=== PATIENT | male | born 1990 | race Hispanic/Latino ===

== ENCOUNTER 2020-03-17 13:48 | Emergency (ER) | payer OTHER ==
[2020-03-17] MEDS ORDERED: LIDOCAINE HCL 2% VISCOUS 15 ML UDCUP ONE ×2 (16:57→16:59)
[2020-03-17] MEDS ORDERED: MAG HYDROX/AL HYDROX/SIMETH ES 30 ML SUSP UDCUP ONE ×2 (16:57→16:59)
== END 2020-03-17 17:03 | disposition home or self-care (01) ==
LOC: EDH 13:48
DX: T17.208A Unspecified foreign body in pharynx causing other injury, initial encounter (principal); R13.10 Dysphagia, unspecified; X58.XXXA Exposure to other specified factors, initial encounter; Y93.89 Activity, other specified; Y92.89 Other specified places as the place of occurrence of the external cause; Y99.8 Other external cause status
CPT/HCPCS: 70360; 70490

== ENCOUNTER 2020-09-21 12:46 | Emergency (ER) | payer OTHER ==
[2020-09-21 14:00] LABS: RAPID GROUP A STREP NEGATIVE (NEGATIVE)
[2020-09-21 14:02] LABS: CREATININE 1.2 mg/dL (0.5-1.5); POTASSIUM 3.7 mmol/L (3.5-5.1)
[2020-09-21 14:06] LABS: ALBUMIN 4.2 g/dL (3.5-5.0); BILIRUBIN,TOTAL 0.5 mg/dL (0.2-1.0); TOTAL PROTEIN, SERUM 8.1 g/dL (6.0-8.3)
[2020-09-21 14:08] LABS: BASOPHILS % (AUTO) 0.6 % (0.0-5.0); EOSINOPHILS % (AUTO) 0.7 % (0.0-8.0); HEMATOCRIT 40.7 % (42-54); LYMPHOCYTES % (AUTO) 5.2 % (21.0-51.0); MEAN CORPUSCULAR HEMOGLOBIN 24.5 pg (27.0-33.0); MEAN CORPUSCULAR HGB CONC 32.2 g/dL (32.0-36.0); MEAN CORPUSCULAR VOLUME 76.2 fL (79-99); MONOCYTES % (AUTO) 13.4 % (3.0-13.0); NEUTROPHILS % (AUTO) 79.7 % (40.0-77.0); PLATELET COUNT (AUTO) 315 K/uL (130-400); RED BLOOD CELL COUNT(AUTO) 5.34 MIL/uL (4.50-6.20); WHITE BLOOD COUNT (AUTO) 9.7 K/uL (4.8-10.8)
[2020-09-21 14:23] LABS: INR 1.1 (0.85-1.15); PROTHROMBIN TIME 11.7 SEC (9.6-11.6)
[2020-09-21 14:24] LABS: PARTIAL THROMBOPLASTIN TIME 25.9 SEC (26.3-35.5)
[2020-09-21] MEDS ORDERED: ALBUTEROL INHALER 90MCG/INH IH ONE (14:35)
[2020-09-21] MEDS ORDERED: DEXAMETHASONE SOD PHOSPHATE 10MG/ML 1ML VIAL ONE (14:35)
[2020-09-21] MEDS ORDERED: CEFTRIAXONE SODIUM 1 GM ONE (14:35)
[2020-09-21] MEDS ORDERED: AZITHROMYCIN 250 MG TABLET PO ONE (14:36)
[2020-09-21] MEDS ORDERED: ACETAMINOPHEN-CODEINE 300/30MG TAB ONE (14:36)
[2020-09-21] MEDS ORDERED: SODIUM CHLORIDE 0.9% 1000ML 1,000 ML IV ONE (14:37)
[2020-09-21] MEDS ORDERED: SODIUM CHLORIDE 0.9% 100 ML IV ONE (14:37)
== END 2020-09-21 16:33 | disposition home or self-care (01) ==
LOC: EDH 12:46
DX: U07.1 COVID-19 (principal); J45.909 Unspecified asthma, uncomplicated; Z72.0 Tobacco use
CPT/HCPCS: 36415; 71045; 80053; 82550; 84484; 85025; 85610; 85730; 87040 ×2; 87426; 87804 ×2; 87880; 93005; 96365; 96375; 99285; J0696; J1100; J7030